=== PATIENT | male | born 1985 | race Two or more races ===

== ENCOUNTER 2018-05-05 04:48 | Emergency (ER) | payer OTHER ==
[~2018-05-05] VITALS: Ht 167.6 cm; Wt 77.1 kg
[2018-05-05 04:51] VITALS: BP 134/69
[2018-05-05] MEDS ORDERED: IBUPROFEN 400 MG TABLET ONE (05:17)
--- NOTE | 2018-05-05 05:28 | NUR ---
Patient discharged to Police in stable condition. Written and verbal after care instructions given. Patient verbalizes understanding of instruction. Pt in custody and escorted out by lapd.
[2018-05-05] MEDS ORDERED: IBUPROFEN 400 MG TABLET PO ONE (05:30)
== END 2018-05-05 05:32 ==
LOC: ER 04:52
DX: M25.512 Pain in left shoulder (principal); X50.0XXA Overexertion from strenuous movement or load, initial encounter; Y93.89 Activity, other specified; Y92.89 Other specified places as the place of occurrence of the external cause; Y99.8 Other external cause status
CPT/HCPCS: 73030; 99284; A4606; Z7610